=== PATIENT | female | born 2000 | race African-American/Black ===

== ENCOUNTER 2023-02-24 04:23 | Emergency (ER) | payer MEDICAID ==
[~2023-02-24] VITALS: Ht 177.8 cm; Wt 59.0 kg
[2023-02-24] MEDS ORDERED: ZIPRASIDONE MESYLATE 20MG/VIAL IM ONE (05:30)
[2023-02-24] MEDS ORDERED: KETOROLAC 60MG/2ML VIAL IM ONE (05:30)
[2023-02-24 05:41] LABS: BASOPHILS % 0.6 % (0.0-2.0); EOSINOPHILS % 0.1 % (0.0-5.0); HEMATOCRIT. 36.6 % (36.0-48.0); HEMOGLOBIN. 12.5 g/dL (12.0-16.0); MEAN CORPUSCULAR VOLUME 96.8 fL (81.0-99.0); MONOCYTES % 3.7 % (2.0-8.0); NEUTROPHILS % 66.6 % (40.0-76.0); PLATELET 268 x1000/uL (130-400); RED BLOOD CELL COUNT 3.79 mill/uL (4.2-5.4); RED CELL DISTRIBUTION WIDTH 13.5 % (11.6-14.6)
[2023-02-24 05:53] LABS: CHLORIDE 113 mEq/L (98-107)
[2023-02-24 06:02] LABS: ETHANOL BLOOD 242 mg/dL
[2023-02-24 06:24] LABS: *AMPHETAMINES SCREEN URINE NEGATIVE (NEGATIVE); *BARBITURATES SCREEN URINE NEGATIVE (NEGATIVE); *BENZODIAZEPINES SCREEN URINE NEGATIVE (NEGATIVE); *COCAINE SCREEN URINE NEGATIVE (NEGATIVE); METHADONE URINE SCREEN NEGATIVE (NEGATIVE); OPIATES URINE SCREEN NEGATIVE (NEGATIVE); PHENCYCLIDINE URINE SCREEN NEGATIVE (NEGATIVE)
[2023-02-24 06:29] LABS: CANNABINOID URINE SCREEN PRESUMTIVE POSITIVE (NEGATIVE)
[2023-02-24] MEDS ORDERED: LIDOCAINE HCL 1% 20ML VIAL (Pyxis) INJ INFIL ONE (07:15)
[2023-02-24] MEDS ORDERED: CEFTRIAXONE 1GM PREMIX 50 ML IV ONE (07:30)
[2023-02-24 12:00] VITALS: BP 112/74
[2023-02-24] MEDS ORDERED: IBUP-2029 MT (12:18)
== END 2023-02-24 12:29 | disposition home or self-care (01) ==
LOC: ER 04:50 → EDBEDREQ 10:04 → EDBEDREQTM 10:04 → CANBEDREQ 10:47 → ER 12:29
DX: S82.401A Unspecified fracture of shaft of right fibula, initial encounter for closed fracture (principal); Y93.89 Activity, other specified; Y92.89 Other specified places as the place of occurrence of the external cause; Y99.8 Other external cause status
CPT/HCPCS: 29515; 36415; 73610; 80048; 80305; 80307; 80320; 80329; 85025; 96365; 96366; 96375; 99285; J0696; J1885; J3490; Z7610; G0480